=== PATIENT | female | born 2000 | race Caucasian/White ===

== ENCOUNTER 2023-09-10 21:39 | Inpatient (IN) ==
[2023-09-10] MEDS ORDERED: LIDOCAINE 1% LOCAL 20 ML VIAL INFIL PRN (22:06)
--- NOTE | 2023-09-10 22:11 | History & Physical Report ---
Date of Service September 10, 2023 Assessment & Plan (1) Active labor at term: Plan: 23-year-old G1, P0 at 40 weeks and 1 day gestation presenting today with regular contractions and change in cervix, Vital signs stable afebrile, heart rate reassuring, GBS negative, Plan to admit, monitor, labs, expectant management, Patient desires to ambulate, All questions were answered. History of Present Illness Primary Care Provider: NO PCP Patient is a 23-year-old G1, P0 at 40.1 weeks of gestation who has been feeling contractions, back pain, and pain since 6:30 PM tonight. She waited for an hour to to see what happens and the pain got worse. She denies leakage of fluid, vaginal bleeding. She reports good movements. Her has been uncomplicated and she was scheduled for induction of labor for tomorrow. GBS negative. She denies any medical problems nor surgeries. Patient History [employer] History No history of STDs, no history of genital herpes, chlamydia nor, gonorrhea Review of Systems as per Subjective / HPI Physical Exam Constitutional: WD/WN, vitals as above well developed and well nourished Gastrointestinal (Abdomen): normal bowel sounds, soft, nontender, no hepatosplenomegaly (Gravid) Genitourinary: normal external appearance OB Exam Abdomen: + vertex Manual OB Exam: + cervical dilation 4 cm, + cervical effacement 70% and + station -2 OB Exam Monitor Tracing: + external uterine monitor used and + category I
[2023-09-10 22:38] LABS: Hematocrit (blood only) 30.4 % (37.0-47.0); Hemoglobin 10.5 g/dl (12.0-16.0); Mean Corpuscular Hemoglobin 28.5 pg (25.0-34.0); Mean Corpuscular Hgb Conc 34.5 g/dL (32.0-36.0); Mean Corpuscular Volume 82.6 fL (80.0-100.0); Mean Platelet Volume 9.8 fL (9.4-12.4); Platelet Count 199 K/uL (130-400); RDW Coefficient of Variation 13.9 % (11.5-14.5); RDW Standard Deviation 41.2 fL (36.4-46.3); Red Blood Count 3.68 M/uL (4.20-5.40); White Blood Count 12.29 K/ul (4.8-10.8)
--- NOTE | 2023-09-11 02:43 | Obstetrical Progress Note ---
Date of Service September 11, 2023 Assessment & Plan Admission and Anticipated Discharge Date Admission Date: September 10, 2023 Subjective Patient ambulated for a while and decided to sleep and rest until morning. Now she is sleeping. VSS Afebrile FHR categ I [place]: contractions q 3-4 min Will order Oxytocin to start when she decides. Continue to monitor Results & Data Vital Signs (Past 12 Hours) Vital Signs Temp Pulse Resp BP 09/11/23 01:01 36.7 C 80 18 120/72 09/10/23 22:11 80 131/77 09/10/23 22:01 36.8 C 18
[2023-09-11] MEDS ORDERED: BUTORPHANOL TARTRATE 2 MG/ML VIAL IM PRN (02:50)
[2023-09-11] MEDS: OXYTOCIN 30 UNITS/NSS 30 UNITS/500 ML BAG IV PRN ×2 (07:53→14:34)
[2023-09-11] MEDS: LACTATED RINGER'S 1,000 ML IV PRN (07:53)
--- NOTE | 2023-09-11 07:58 | Obstetrical Progress Note ---
Date of Service September 11, 2023 Assessment & Plan (1) 40 weeks gestation of : Plan: AROM was performed, no complications Start oxytocin Epidural if patient request Anticipate spontaneous vaginal delivery (2) Antepartum anemia complicating in third trimester: Admission and Anticipated Discharge Date Admission Date: September 10, 2023 Subjective Patient was able to sleep comfortably, no complaints at this time Physical Exam Genitourinary: heart tracing: Baseline 130, moderate variability, positive accelerations no decelerations, category 1 tracing Contractions irregularly Cervix: 4/60/-3, AROM performed with blood-tinged fluid, IUPC was placed, no cord felt, no complication Results & Data Vital Signs (Past 12 Hours) Vital Signs Temp Pulse Resp BP 09/11/23 07:15 36.8 C 18 09/11/23 07:14 76 124/75 09/11/23 05:11 74 121/76 09/11/23 01:01 36.7 C 80 18 120/72 09/10/23 22:11 80 131/77 09/10/23 22:01 36.8 C 18
--- NOTE | 2023-09-11 08:44 | Anesthesiology Consultation ---
Date of Service September 11, 2023 Assessment & Plan Chart Review Chart Review: Acceptable Risk for Labor Epidural History Height/Weight Height: 5 ft 4 in Weight: 71.668 kg Allergies Allergy/AdvReac Type Severity Reaction Status Date / Time No Known Allergies Allergy Unverified 09/10/23 22:16 Medications Home Medications Medication Instructions Recorded Confirmed Last Taken prenat.vits,yokasta,[id number] 1 tab PO DAILY 09/10/23 09/10/23 09/10/23 Active Medications Generic Name Dose Route Start Last Admin Trade Name Freq PRN Reason Stop Dose Admin Lactated Ringer's 1,000 mls @ 150 mls/hr 09/10/23 22:06 09/11/23 08:30 Lr IV 09/12/23 22:05 999 mls/hr .[id number] PRN Infusion L&D Protocol Protocol Oxytocin 30 units in 500 mls @ 1 mls/hr 09/11/23 02:50 09/11/23 08:30 Pitocin 30 Units/Nss IV 09/13/23 02:49 0.24 units/hr .Q24H PRN 4 mls/hr Labor Induction/Augmentation Titration Protocol 0.06 UNITS/HR Past Medical History Medical History (Updated 09/11/23 @ 08:42 by Aj Jimenez MD) Antepartum anemia complicating in third trimester Past Surgical History Surgical History (Updated 09/11/23 @ 08:44 by Aj Jimenez MD) No pertinent past surgical history Social History Smoking Status: Never smoker Hx Alcohol Use: No Hx Substance Use: No Physical Exam Vital Signs Last Vital Signs Temp 36.6 C 09/11/23 08:30 Pulse 74 09/11/23 08:30 Resp 18 09/11/23 08:30 BP 128/81 09/11/23 08:30 Testing Laboratory Results 09/10/23 22:27
[2023-09-11] MEDS: fentANYL 2 MCG/ML BUPIVacaine 0.125%-NSS 100ML BAG ONE (09:43)
[2023-09-11] MEDS: LIDOCAINE 2%/EPINEPHRINE 1:200,000 20 ML PF ONE (09:49)
[2023-09-11] MEDS: fentaNYL citrate PF 100 MCG/2 ML VIAL ONE (09:49)
[2023-09-11] MEDS: SODIUM CHLORIDE 0.9% PF INJ 10 ML VIAL ONE (09:50)
[2023-09-11] MEDS: BUPIVACAINE 0.25% PF 30 ML VIAL ONE (09:50)
[2023-09-11] MEDS ORDERED: ePHEDrine sulfate 50 MG/ML AMP IV PRN (09:52)
[2023-09-11] MEDS ORDERED: ROPIVACAINE 0.5% PF 5 MG/ML 20 ML VIAL EPI PRN (09:52)
[2023-09-11] MEDS ORDERED: SODIUM CHLORIDE 0.9% PF INJ 10 ML VIAL EPI PRN (09:52)
[2023-09-11] MEDS ORDERED: ONDANSETRON INJ 2 MG/ML 2 ML VIAL IV PRN (09:52)
[2023-09-11] MEDS ORDERED: BUPIVACAINE 0.25% PF 30 ML VIAL EPI PRN (09:52)
[2023-09-11] MEDS ORDERED: LIDOCAINE 2% MPF LOCAL 5 ML VIAL EPI PRN (09:52)
[2023-09-11] MEDS ORDERED: NALOXONE HCL 1 MG in SODIUM CHLORIDE 0.9% 1,000 ML IV PRN (09:52)
[2023-09-11] MEDS ORDERED: fentaNYL citrate PF 100 MCG/2 ML VIAL EPI PRN (09:52)
[2023-09-11] MEDS ORDERED: fentANYL 2 MCG/ML BUPIVacaine 0.125%-NSS 100ML BAG EPI PRN (09:52)
[2023-09-11] MEDS ORDERED: NALOXONE HCL 0.4 MG/1 ML VIAL/CARP IV PRN (09:52)
--- NOTE | 2023-09-11 12:05 | Obstetrical Progress Note ---
Date of Service September 11, 2023 Assessment & Plan (1) 40 weeks gestation of : Plan: Resuscitative measures performed by nursing staff prior to my goal, will allow patient to labor down Restart oxytocin when category 1 tracing Anticipate spontaneous vaginal delivery (2) Antepartum anemia complicating in third trimester: Admission and Anticipated Discharge Date Admission Date: September 10, 2023 Subjective Called to room for patient having a deceleration at the time of pushing Resuscitative measures performed by nursing staff, patient currently left lateral position Physical Exam Genitourinary: heart tracing: Baseline 07 13-07 18, no accelerations, early decelerations with pushing, had 3-minute deceleration down to 90s, with return to baseline with resuscitative measures Contractions every 3 to 4 minutes Results & Data Vital Signs (Past 12 Hours) Vital Signs Temp Pulse Resp BP Pulse Ox 09/11/23 11:59 90 99 09/11/23 11:54 85 100 09/11/23 11:53 110 H 82 L 09/11/23 11:50 108 H 128/75 09/11/23 11:49 109 H 100 09/11/23 11:47 18 09/11/23 11:47 36.4 C L 18 09/11/23 11:46 98 H 92 09/11/23 11:44 82 100 09/11/23 11:39 72 100 09/11/23 11:34 79 105/59 L 100 09/11/23 11:29 72 100 09/11/23 11:24 76 100 09/11/23 11:19 68 104/55 L 100 09/11/23 11:16 93 H 94 09/11/23 11:14 91 H 100 09/11/23 11:09 89 100 09/11/23 11:08 92 H 84 L 09/11/23 11:04 79 116/71 95 09/11/23 10:59 84 99 09/11/23 10:58 91 H 92 09/11/23 10:54 87 100 09/11/23 10:49 85 100 09/11/23 10:48 83 115/74 09/11/23 10:44 79 100 09/11/23 10:39 74 100 09/11/23 10:34 100 09/11/23 10:34 62 09/11/23 10:34 64 103/57 L 09/11/23 10:29 74 99 24 10:24 72 100 24 10:19 69 100 24 10:14 77 100 24 10:09 70 100 24 10:04 68 100 24 10:02 72 102/54 L 09/11/23 09:59 77 100 24 09:55 75 110/69 09/11/23 09:54 80 100 24 09:53 90 108/72 09/11/23 09:51 88 110/71 09/11/23 09:49 80 109/70 100 24 09:47 74 111/73 09/11/23 09:45 36.4 C L 09/11/23 09:45 72 114/75 09/11/23 09:44 70 100 09/11/23 09:43 69 114/74 09/11/23 09:41 68 112/67 09/11/23 09:40 63 119/72 09/11/23 09:39 71 109/63 97 09/11/23 09:38 74 111/65 09/11/23 09:37 73 123/66 09/11/23 09:34 74 99 09/11/23 09:29 76 99 09/11/23 09:24 78 100 09/11/23 09:15 79 100 09/11/23 09:10 84 99 09/11/23 09:05 72 98 09/11/23 09:00 80 98 09/11/23 08:58 83 119/76 24 08:55 74 99 09/11/23 08:50 70 99 24 08:45 72 100 24 08:30 36.6 C 18 24 08:30 74 128/81 24 07:15 36.8 C 18 24 07:14 76 124/75 24 05:11 74 121/76 24 01:01 36.7 C 80 18 120/72
[2023-09-11] MEDS ORDERED: ACETAMINOPHEN 325 MG TAB PO PRN (14:12)
[2023-09-11] MEDS ORDERED: bisacodyL 10 MG SUPP PR PRN (14:12)
[2023-09-11] MEDS ORDERED: OXYTOCIN 30 UNITS/NSS 30 UNITS/500 ML BAG IV PRN (14:12)
--- NOTE | 2023-09-11 14:16 | Delivery Summary ---
Vaginal Delivery Summary Date of Service September 11, 2023 Vaginal Delivery Summary Delivery Note Delivery Summary: Patient was placed in the dorsal lithotomy position. She was prepped and draped in the usual sterile fashion. Upon maternal pushing the head was delivered atraumatically (with modified Rickens maneuver) followed by the anterior shoulders, posterior shoulders then the remainder of the infants body. Nuchal x 1 was reduced after delivery of the . The infant was immediately placed on mother's abdomen, dried and stimulated. Delayed cord clamping for 60 seconds was performed. The infants mouth and nose were bulb suctioned by nursing staff. A male infant was delivered at 1400, weight pending with APGARS of 8 at 1 minute and 9 at 5 minutes. The was handed off to the awaiting nursing staff. Cord blood gases were not obtained. The placenta delivered intact with three vessel cord at 1403. Placenta was sent to pathology. Thirty units of Pitocin were added to the IV fluid and allowed to run freely. Uterine massage was performed until uterus was deemed firm. Upon inspection of the perineum, perineum and cervix were intact. Noted small approximately 1 cm small vaginal laceration on the right side behind the hymen that was repaired with a figure- of-eight of 3-0 Vicryl. Good hemostasis was noted. Upon re-inspection the patient was hemostatic. Uterus again massaged and found to be firm. Needle and sponge counts were correct. Patient was stable and allowed to recover in L&D room. was stable and remained in room with mother in the labor and delivery unit. EBL 300mls
--- NOTE | 2023-09-11 14:53 | Anesthesia Procedure Note ---
Date of Service September 11, 2023 Anesthesia Post Epidural Note Vital Signs Vital Signs: Temp Pulse Resp BP Pulse Ox 36.4 C L 85 18 121/74 97 09/11/23 11:47 09/11/23 14:49 09/11/23 14:42 09/11/23 14:49 09/11/23 14:09 Pain Intensity Back: Pain Intensity: 7 Notes Mental Status: alert / awake / arousable and participated in evaluation Nausea / Vomiting: adequately controlled Pain: adequately controlled Airway Patency, RR, SpO2: stable & adequate BP & HR: stable & adequate Hydration State: stable & adequate Neuraxial Anesthesia: was administered and sensory block is resolving Anesthetic Complications: no major complications apparent Epidural: Removed without complications and With tip intact
[2023-09-11] MEDS: IBUPROFEN 600 MG TAB PO PRN (19:54)
[2023-09-11] MEDS: DOCUSATE SODIUM 100 MG CAP PO SCH (21:44)
[2023-09-12 06:41] LABS: Hematocrit (blood only) 26.8 % (37.0-47.0); Hemoglobin 8.9 g/dl (12.0-16.0); Mean Corpuscular Hemoglobin 28.1 pg (25.0-34.0); Mean Corpuscular Hgb Conc 33.2 g/dL (32.0-36.0); Mean Corpuscular Volume 84.5 fL (80.0-100.0); Mean Platelet Volume 9.6 fL (9.4-12.4); Platelet Count 170 K/uL (130-400); RDW Standard Deviation 43.4 fL (36.4-46.3); Red Blood Count 3.17 M/uL (4.20-5.40); White Blood Count 11.78 K/ul (4.8-10.8)
[2023-09-12] MEDS: IRON SUCROSE 300 MG in SODIUM CHLORIDE 0.9% 250 ML IV ONE (07:52)
[2023-09-12] MEDS: PRENATAL VITAMIN 1 TAB PO SCH (07:53)
--- NOTE | 2023-09-12 08:47 | Obstetrical Progress Note ---
Date of Service September 12, 2023 Assessment & Plan Admission and Anticipated Discharge Date Admission Date: September 10, 2023 Subjective Patient is seen and examined. She feels well, no complaints. Ambulating without dizziness Voiding without difficulty Tolerating regular diet with out N&V Bleeding is minimal No fever/ chills/ CP/ SOB/ N&V/ Leg pain Breast feeding without problems. Vital Signs Temp Pulse Resp BP Pulse Ox O2 Del Method 09/12/23 02:43 36.6 C 60 18 122/77 98 Room Air 09/11/23 23:44 36.6 C 75 18 115/72 99 Room Air Lab Results 09/10/23 09/12/23 Range/Units 22:27 06:18 WBC 12.29 H 11.78 H (4.8-10.8) K/ul RBC 3.68 L 3.17 L (4.20-5.40) M/uL Hgb 10.5 L 8.9 L (12.0-16.0) g/dl Hct 30.4 L 26.8 L (37.0-47.0) % MCV 82.6 84.5 (80.0-100.0) fL MCH 28.5 28.1 (25.0-34.0) pg MCHC 34.5 33.2 (32.0-36.0) g/dL RDW Std Deviation 41.2 43.4 (36.4-46.3) fL RDW Coeff of Pedro 13.9 14.0 (11.5-14.5) % Plt Count 199 170 (130-400) K/uL MPV 9.8 9.6 (9.4-12.4) fL PE: General: Alert, orientedx3, NAD Abd: soft, NT, fundus firm, below Umbilicus Perineum intact, Lochia rubra minimal Ext; NT, no edema AP: 23 yo s/p , ppd# 1 VSS Afebrile doing well Anemic, having IV iron infusion now Continue routine care All questions were answered D/C home tomorrow Results & Data Vital Signs (Past 12 Hours) Vital Signs Temp Pulse Resp BP Pulse Ox O2 Del Method 09/12/23 02:43 36.6 C 60 18 122/77 98 Room Air 09/11/23 23:44 36.6 C 75 18 115/72 99 Room Air
[2023-09-12] MEDS: HYDROCORTISONE ACETATE 25 MG SUPP PR PRN (16:01)
[2023-09-12] MEDS: BENZOCAINE 20% SPRY 85 APPLN/85 GM CAN EXT PRN (16:04)
[2023-09-12] MEDS: DIPHTHER/TETAN/PERTUS Vaccine (Tdap, Adol/Adult) 0.5mL IM ONE (21:52)
[2023-09-12] MEDS: bisacodyL 5 MG TABEC PO SCH (21:52)
[2023-09-12] MEDS: FERROUS SULFATE 325 MG TAB PO SCH (21:53)
[2023-09-12] MEDS: BUPIVACAINE 0.25% PF 30 ML VIAL EPI STA (22:07)
[2023-09-12] MEDS: fentaNYL citrate PF 100 MCG/2 ML VIAL EPI STA (22:07)
[2023-09-12] MEDS: SODIUM CHLORIDE 0.9% PF INJ 10 ML VIAL EPI STA (22:07)
[2023-09-12] MEDS: LIDOCAINE 2%/EPINEPHRINE 1:200,000 20 ML PF EPI STA (22:07)
[2023-09-12] MEDS: ePHEDrine sulfate 50 MG/ML AMP ONE (22:07)
[2023-09-13 06:41] LABS: Hematocrit (blood only) 27.7 % (37.0-47.0); Hemoglobin 8.9 g/dl (12.0-16.0)
--- NOTE | 2023-09-13 07:42 | Obstetrical Progress Note ---
Date of Service September 13, 2023 Assessment & Plan (1) Normal course: Continue routine care Discharge home today with follow-up in clinic with instructions (2) Antepartum anemia complicating in third trimester: Continue IV iron, discharged with p.o. iron twice daily Subjective Ambulation: ambulating normally Voiding: no voiding problems Passing Gas:: Yes Diet Tolerance:: regular diet Lochia:: Small Feeding Type:: breast feeding Doing well, wants another suppository to help with having a bowel movement since she had yesterday Denies any fevers or chills. Denies any shortness of breath or chest pain Physical Exam Constitutional WD/WN, vitals as above Respiratory normal respiratory effort, lungs clear to auscultation Cardiovascular RRR, no murmur, no edema Gastrointestinal (Abdomen) normal bowel sounds, soft, nontender, no hepatosplenomegaly Fundus below U Results & Data Vital Signs (Past 12 Hours) Vital Signs Temp Pulse Resp BP Pulse Ox O2 Del Method 09/13/23 04:30 36.4 C L 72 18 120/65 98 Room Air 09/12/23 19:50 36.5 C 85 18 124/61 94 Room Air Laboratory Results Laboratory Results WBC 11.78 K/ul (4.8-10.8) H 09/12/23 06:18 RBC 3.17 M/uL (4.20-5.40) L 09/12/23 06:18 Hgb 8.9 g/dl (12.0-16.0) L 09/13/23 05:44 Hct 27.7 % (37.0-47.0) L 09/13/23 05:44 MCV 84.5 fL (80.0-100.0) 09/12/23 06:18 MCH 28.1 pg (25.0-34.0) 09/12/23 06:18 MCHC 33.2 g/dL (32.0-36.0) 09/12/23 06:18 RDW Std Deviation 43.4 fL (36.4-46.3) 09/12/23 06:18 RDW Coeff of Pedro 14.0 % (11.5-14.5) 09/12/23 06:18 Plt Count 170 K/uL (130-400) 09/12/23 06:18 MPV 9.6 fL (9.4-12.4) 09/12/23 06:18
[2023-09-13] MEDS: IRON SUCROSE 300 MG in SODIUM CHLORIDE 0.9% 250 ML IV ONE (08:10)
== END 2023-09-13 10:29 | disposition home or self-care (01) | DRG 806 ==
LOC: OPB 21:39 → 4S1 21:51 → 4E2 09-11 16:53